=== PATIENT | female | born 1950 | race Caucasian/White ===

== ENCOUNTER → 2017-01-18 | Outpatient (CLI) | payer OTHER ==
--- NOTE | 2017-01-19 07:42 | MAMMOGRAPHY REPORT ---
BILATERAL DIGITAL SCREENING MAMMOGRAM WITH CAD: 01/18/2017 CLINICAL HISTORY: Routine screening. Patient has no complaints. TECHNIQUE: Current study was also evaluated with a Computer Aided Detection (CAD) system. Bilatera l CC and MLO views were obtained. COMPARISON: Comparison is made to exams dated: 01/04/2016 mammogram, 08/04/2013 mammogram - [facility] [place], and 03/25/2008. BREAST COMPOSITION: The tissue of both breasts is almost entirely fatty. FINDINGS: No suspicious masses, calcifications, or areas of architectural distortion are noted in e ither breast. There has been no significant interval change compared to prior exams. Scattered bilat eral benign-appearing calcifications are not significantly changed. IMPRESSION: ACR BI-RADS CATEGORY 2: BENIGN There is no mammographic evidence of malignancy. A 1 year screening mammogram is recommended. The p atient will receive written notification of the results. Approximately 10% of breast cancers are not detected with mammography. A negative mammographic repor t should not delay biopsy if a clinically suggestive mass is present. Tory Simeon M.D. ah/:01/18/2017 14:53:11 Hot Metal Mixer Operator Helper: Angelia Blevins RT(R)(M), [facility] letter sent: Normal 1/2 BI-RADS Code: ACR BI-RADS Category 2: Benign
== END | disposition home or self-care (01) ==
LOC: C.MAMM 09:56
PROVIDERS: ATTEND Internal Medicine
DX: Z12.31 Encounter for screening mammogram for malignant neoplasm of breast (principal)

== ENCOUNTER → 2018-01-24 | Outpatient (CLI) | payer OTHER ==
--- NOTE | 2018-01-25 07:46 | MAMMOGRAPHY REPORT ---
BILATERAL DIGITAL SCREENING MAMMOGRAM TOMOSYNTHESIS WITH CAD: 01/24/2018 CLINICAL HISTORY: Routine screening. Patient has no complaints. TECHNIQUE: Breast tomosynthesis in addition to standard 2D mammography was performed. Current study was also evaluated with a Computer Aided Detection (CAD) system. COMPARISON: Comparison is made to exams dated: 01/18/2017 mammogram, 01/04/2016 mammogram, 08/04/2013 [facility], and 03/25/2008. BREAST COMPOSITION: The tissue of both breasts is almost entirely fatty. FINDINGS: No suspicious masses, calcifications, or areas of architectural distortion are noted in ei ther breast. There has been no significant interval change compared to prior exams. Scattered bilater al benign-appearing calcifications are not significantly changed. IMPRESSION: ACR BI-RADS CATEGORY 2: BENIGN There is no mammographic evidence of malignancy. A 1 year screening mammogram is recommended. The pa tient will receive written notification of the results. Approximately 10% of breast cancers are not detected with mammography. A negative mammographic report should not delay biopsy if a clinically suggestive mass is present. Tory Simeon M.D. /:01/24/2018 12:31:52 Pack Room Operator: Angelia GUZMAN(Ho)(M), [facility] letter sent: Normal 1/2 BI-RADS Code: ACR BI-RADS Category 2: Benign
== END | disposition home or self-care (01) ==
LOC: C.MAMM 10:17
PROVIDERS: ATTEND Internal Medicine
DX: Z12.31 Encounter for screening mammogram for malignant neoplasm of breast (principal)

== ENCOUNTER 2019-07-11 08:02 | Inpatient (IN) ==
--- NOTE | 2019-07-04 08:37 | Anesthesiology Consultation ---
Date of Service July 04, 2019 Assessment & Plan Chart Review Chart Review: Acceptable Risk for Surgery and Patient NOT seen in Pre Admission Testing Consults Requested none ASA ASA2 Proposed Anesthesia Anesthesia Type: General and MAC Spinal Risk / Benefits Reviewed With: PT / POA / Parent / Guardian, Accepts Plan and Informed Consent Obtained History Surgery Operation Date: 07/11/19 13:40 Proposed Procedures p Right Anterior Total Hip Arthroplasty - Von Elizalde, Height/Weight Height: 5 ft 4 in Weight: 72.1 kg Allergies Allergy/AdvReac Type Severity Reaction Status Date / Time No Known Allergies Allergy Unknown Verified 07/01/19 12:07 Medications Home Medications Medication Instructions Recorded Confirmed Last Taken acetaminophen [Acetaminophen Extra 1,000 mg PO Q6H PRN 07/01/19 07/01/19 Unknown Strength] Past Medical History Medical History Cardiac murmur "slight" no problems Osteoarthritis Exercise / Class Metabolic Activity III < 4 Walking/Shop/Light housework Past Family History Family History Father FHx: hypertension Past Surgical History Surgical History History of section x2 History of total hip arthroplasty Left S/P TEA-BSO Past Anesthesia History No Hx of Anesthesia Complications and No Family Hx of Anesthesia Complications History of PONV No Hx of Motion Sickness and History of PONV Social History Smoking Status: Former smoker tobacco type: cigarettes Smoking cigarettes per day: 15 x 40 years Do You Dip or Chew Tobacco: No Smoking End Date: 2016 Hx Alcohol Use: No Hx Substance Use: No substance use type: does not use Physical Exam Vital Signs Last Vital Signs Temp 36.7 C 07/04/19 08:15 Pulse 73 07/04/19 08:15 Resp 18 07/04/19 08:15 BP 165/82 H 07/04/19 08:15 Pulse Ox 97 07/04/19 08:15 Constitutional not obese ENMT Mouth: + dentures Thyromental Distance: > or= 3.5 Finger Breadths Mallampati Class: II Neck normal visual inspection and trachea midline; neck extension not limited Respiratory normal respiratory effort Auscultation: lungs clear to auscultation bilaterally Cardiovascular Rate/Rhythm: regular rate and regular rhythm Heart Sounds: no murmur Vessels: no carotid bruit Musculoskeletal Spine: normal cervical ROM Neurologic moves all extremities Motor/Sensory: no sensory deficit Psychiatric Orientation: alert and oriented x 3 Testing Electrocardiogram Date: 07/04/19 Findings: + NSR @ (at 68;? old anter. ND)
[2019-07-04 11:37] LABS: Basophils # (auto) 0.03 K/uL (0-0.2); Basophils % (auto) 0.5 %; Eosinophils # (auto) 0.06 K/uL (0-0.5); Hematocrit (blood only) 37.9 % (37-47); Hemoglobin 12.8 g/dL (12.0-16.0); Immature Granulocytes # (auto) 0.01 K/uL (0.00-0.02); Immature Granulocytes % (auto) 0.2 %; Lymphocytes # (auto) 1.29 K/uL (1.2-3.4); Lymphocytes % (auto) 21.6 %; Mean Corpuscular Hgb Conc 33.8 g/dL (32-36); Mean Corpuscular Volume 91.8 fL (80-100); Monocytes # (auto) 0.35 K/uL (0.11-0.59); Monocytes % (auto) 5.9 %; Neutrophils # (auto) 4.24 K/uL (1.4-6.5); Neutrophils % (auto) 70.8 %; Platelet Count 421 K/uL (130-400); RDW Coefficient of Variation 13.2 % (11.5-14.5); RDW Standard Deviation 44.4 fL (36.4-46.3); Red Blood Count 4.13 M/uL (4.2-5.4); White Blood Count 5.98 K/uL (4.8-10.8)
[2019-07-04 11:44] LABS: BUN Creatinine Ratio 20.9 (10-20); Calcium 9.3 mg/dl (8.5-10.1); Creatinine Clr Calc Pharmacy 79.4 ml/min; Est GFR (African American) 105.2; Est GFR (Non-African American) 90.8; Potassium 4.5 mmol/L (3.5-5.1)
[2019-07-04 11:50] LABS: INR 0.9 (0.9-1.1); Partial Thromboplastin Time 25.9 Seconds (21.0-31.0); Prothrombin Time 9.7 Seconds (9.0-12.0)
--- NOTE | 2019-07-11 06:18 | History & Physical Report ---
Date of Service July 11, 2019 Assessment & Plan (1) Osteoarthritis of right hip: We will proceed with a right anterior total hip arthroplasty. Postoperatively she will be started on aspirin for DVT prophylaxis and kept overnight in the hospital for postoperative medical management. She plans to use Shippable upon discharge. Present on Admission?: Yes History of Present Illness Chief Complaint: Primary osteoarthritis of the right hip Primary Care Provider: Argelia Reynolds MD Chelo is a pleasant 68-year-old female who is been dealing with chronic increasing right hip and groin pain. She has a history of a left total hip arthroplasty done by Dr. Mclaughlin 20 years ago. X-rays and clinical examination of the right hip are diagnostic for primary osteoarthritis. After failing conservative treatment, she has elected to proceed with a right anterior total hip arthroplasty. Allergies Allergy/AdvReac Type Severity Reaction Status Date / Time No Known Allergies Allergy Unknown Verified 07/01/19 12:07 Home Medications Home Medications Medication Instructions Recorded Confirmed Type acetaminophen [Acetaminophen Extra 1,000 mg PO Q6H PRN 07/01/19 07/01/19 History Strength] Past Med/Surg History Medical History Cardiac murmur "slight" no problems Osteoarthritis Surgical History History of section x2 History of total hip arthroplasty Left S/P TEA-BSO Family History Father FHx: hypertension Social History Preferred Language: Vincentian Communication Ability: Effective B2B Sales Consultant Required: No Beliefs That Will Affect Care: None Current Living Situation: Alone Feels Safe at Home: Yes Smoking Status: Former smoker Tobacco Type: cigarettes ; Cigarettes Per Day: 15 x 40 years ; Second Hand Exposure: No ; Hx Alcohol Use: No Hx Substance Use: No Review of Systems All systems reviewed & are unremarkable except as noted in HPI & below Physical Exam Constitutional: WD/WN, vitals as above Eyes: PERRL, conjunctivae normal, anicteric sclerae ENMT: external ear and nose normal, oropharynx normal Neck: trachea midline, no thyromegaly Respiratory: normal respiratory effort Cardiovascular: RRR, no murmur, no edema Gastrointestinal (Abdomen): normal bowel sounds, soft, nontender, no hepatosplenomegaly Musculoskeletal: Physical examination of the right hip reveals decreased range of motion with flexion, internal and external rotation. There is significant groin pain with forced internal rotation of the hip his leg lengths are essentially equal. Psychiatric: A+Ox3, euthymic affect Results & Data Diagnostic Findings Radiographs of the right hip and pelvis demonstrate advanced osteoarthritis with joint space narrowing osteophyte formation and [id number] articulation.
[~2019-07-11 08:02] MED LIST: ACETAMINOPHEN 500 MG TAB PO SCH; BUPIVACAINE 0.5 % 5 MG/1 ML PF 10ML VIAL ONE; CEFAZOLIN 1000MG 1,000 MG/7.5 ML SYR IV SCH; FAMOTIDINE 20 MG TAB PO SCH; GABAPENTIN 600 MG DOSE PO SCH; LR 15ML/HR IV SCH; LR 60ML/HR IV SCH; ROPIVACAINE 0.5% HCL/PF 150 MG, BUPIVACAINE 0.5% MPF 30 ML, EPINEPHrine 30MG/30ML (OR U... INFIL SCH; TRANEXAMIC ACID 1,000 MG **IV Intra-op IV SCH; TRANEXAMIC ACID 1,000 MG **IV Pre-op IV SCH
[2019-07-11] MEDS ORDERED: MIDAZOLAM HCL 1 MG/ML 2ML VIAL ONE ×2 (08:51→11:47)
[2019-07-11] MEDS ORDERED: ORTHO JOINT ANESTHETIC ONE (09:26)
[2019-07-11] MEDS ORDERED: ONDANSETRON INJ 2 MG/ML 2 ML VIAL IV PRN ×2 (09:41→13:55)
[2019-07-11] MEDS ORDERED: HYDROmorphone INJ 1 MG/ML SYRINGE IV PRN (09:41)
[2019-07-11] MEDS ORDERED: PHENYLEPHRINE 100MCG/ML 5ML SYR IV PRN (09:41)
[2019-07-11] MEDS ORDERED: ATROPINE SULFATE 0.1 MG/ML 10ML SYR IV PRN (09:41)
[2019-07-11] MEDS ORDERED: ePHEDrine sulfate 50 MG/ML AMP IV PRN (09:41)
[2019-07-11] MEDS ORDERED: KETOROLAC 30 MG/ML VIAL IV PRN (09:41)
[2019-07-11] MEDS ORDERED: fentaNYL citrate 100 MCG/2 ML VIAL ONE (10:57)
[2019-07-11] MEDS ORDERED: PROPOFOL IV EMULSION 10 MG/ML 20 ML VIAL IV ONE (11:25)
[2019-07-11] MEDS ORDERED: ePHEDrine sulfate 50 MG/ML SYR ONE (11:25)
--- NOTE | 2019-07-11 12:30 | Fluoroscopy Report ---
FL hip RT 1V HISTORY: 68 years-old Female RIGHT ANTERIOR MAR right hip total joint arthroplasty. History of degen erative joint disease COMPARISON: Pelvis radiograph 06/09/2019 TECHNIQUE: 2 spot fluoroscopic images of the right hip were obtained utilizing 13 seconds fluoroscopy time FINDINGS: Left hip total joint arthroplasty is partially imaged. Severe osteoarthritis of the right hip. Subseq uent images demonstrate a right hip total joint arthroplasty which appears to be in satisfactory posi tioning. No acute fracture identified. Expected postsurgical soft tissue swelling and deep tissue air about the right hip. IMPRESSION: Satisfactory alignment of the right hip total joint arthroplasty. The above report was generated using voice recognition software. It may contain grammatical, syntax o r spelling errors. Electronically signed by: Jose D Rock M.D. 07/11/2019 12:28 PM
--- NOTE | 2019-07-11 12:30 | Operative Report ---
Post Operative Report Pre & Post Diagnosis Operation Date: 07/11/19 10:20 Pre-Op Diagnosis: Right Hip Dengerative Joint Disease Post-Op Diagnosis: Right Hip Dengerative Joint Disease Procedure Operation Date: 07/11/19 10:20 Actual Procedures p Right Anterior Total Hip Arthroplasty(Right) - Von Elizalde DO Surgeon Von Elizalde DO Insurance Claim Representative Von Daley PAC Estimated Blood Loss 250 Findings Consistent with Post-Op Diagnosis Specimens Right femoral head Complications none Disposition Disposition: Recovery Room Indications Chelo is a pleasant 68-year-old female who presented my office with severe right hip and groin pain. X-rays and clinical examination were diagnostic for primary osteoarthritis of the right hip. After failing conservative treatment, she elected to proceed with a right anterior total hip arthroplasty. Description of Procedure Implants used Biomet Taperloc total hip arthroplasty system with a size 16 standard offset Taperloc stem, a 48 mm G7 cup with a 25mm screw, an E1 polyethylene liner, a 32 mm ceramic head with a 0 neck. Patient arrived at the hospital for the above procedure. They were seen in the preoperative holding area and the operative extremity was identified and signed. They were given a spinal anesthetic. They were given a preoperative antibiotic and TXA. They were taken back To the operating room and laid on the table in the supine position. The leg was brought out through a Puristst leg positioner. The hip was then prepped and draped in sterile fashion. A timeout was done and the patient in upper extremities properly identified. An anterior approach was used. Dissection was taken down through the fascia and the tensor muscle belly was retracted laterally and the rectus was retracted medially. The circumflex vessels were identified and ligated. The capsule was then incised and tagged for later repair. The femoral neck was then cut and the femoral head was removed. The acetabulum was exposed. Time was spent doing a complete circumferential labral release. Sequential reaming of the acetabulum up to a size 47 reamer was done. Final reamings were done under fluoroscopy to ensure appropriate version. A Biomet 48 mm G7 cup was then impacted into place. A single 25 mm screw was placed. The E1 polyethylene liner was then snapped into place. Surrounding soft tissues were then injected with 100 cc of an orthopedic pain control cocktail. The proximal femur was then exposed. Sequential broaching up to a size 16 broach was done. Off that broach a size 32 head with a 0 neck was trialed. The hip was reduced and fluoroscopic images showed anatomic alignment of the implants in acceptable length. The broach was removed. The final size 16 standard offset Taperloc stem was then impacted into place. A ceramic 32 mm head with a 0 neck was then impacted into place in the hip was reduced. Final fluoroscopic images showed anatomic reduction of the hip. The capsule was then closed with #1 Vicryl suture. A dilute betadyne lavage was then done for 3 minutes. The joint was then irrigated with normal saline solution. The fascia was closed with #1 PDS suture. Skin was closed with 2-0 Vicryl, jeff, and a Gege VAC dressing. The patient was then transferred to a hospital bed and taken to the post anesthesia care unit in stable condition. They tolerated the procedure well. I attest to the content of the Intraoperative Record and any orders documented therein. Any exceptions are noted below.
--- NOTE | 2019-07-11 13:07 | XRay Report ---
XR hip 1V RT w pelvis CLINICAL HISTORY: Postoperative evaluation. COMPARISON: Pelvis and right hip radiographs June 09, 2019. FINDINGS: Alignment of the total right hip arthroplasty is anatomic. There is no fracture or unexpec quan radiopaque foreign body. There are are skin jeff. Acetabular screw is present. Left hip arthro plasty is noted. IMPRESSION: Expected findings following total right hip arthroplasty. Electronically signed by: Felipe Blank M.D. 07/11/2019 1:06 PM
[2019-07-11] MEDS ORDERED: METOCLOPRAMIDE HCL INJ 5 MG/ML 2 ML VIAL IV PRN (13:55)
[2019-07-11] MEDS ORDERED: ACETAMINOPHEN 500 MG TAB PO PRN (13:55)
[2019-07-11] MEDS ORDERED: SODIUM CHLORIDE 0.9% 1000ML 1,000 ML IV SCH (13:55)
[2019-07-11] MEDS ORDERED: HYDROmorphone INJ 0.5 MG/0.5 ML SYR IV PRN (13:55)
[2019-07-11] MEDS ORDERED: NALOXONE HCL 0.4 MG/1 ML VIAL/CARP IV PRN (13:55)
[2019-07-11] MEDS ORDERED: MAGNESIUM HYDROXIDE SUSP 30 ML UDC PO PRN (13:55)
[2019-07-11] MEDS ORDERED: bisacodyL 10 MG SUPP PR PRN (13:55)
--- NOTE | 2019-07-11 14:03 | Anesthesiology Progress Note ---
Date of Service July 11, 2019 Anesthesia Post Procedure Vital Signs Vital Signs: Temp Pulse Pulse Resp BP Pulse Ox 07/11/19 13:30 36.3 C L 71 13 128/61 100 07/11/19 13:20 79 17 110/62 100 07/11/19 13:10 71 13 128/62 100 07/11/19 13:00 69 14 135/65 100 07/11/19 12:50 36.3 C L 76 19 130/53 L 100 07/11/19 08:21 36.6 C 80 16 156/71 H 96 Transfer of Care Handoff Completed per policy Notes Mental Status: alert / awake / arousable Patient Amnestic to Procedure: Yes Nausea / Vomiting: adequately controlled Pain: adequately controlled Airway Patency, RR, SpO2: stable & adequate BP & HR: stable & adequate Hydration State: stable & adequate Neuraxial Anesthesia: was administered and sensory block is resolving Anesthetic Complications: no major complications apparent
[2019-07-11] MEDS: KETOROLAC TROMETHAMINE 15 MG/ML VIAL IV SCH ×2 (16:52→22:12)
[2019-07-11] MEDS: CEFAZOLIN 1000MG 1,000 MG/7.5 ML SYR IV SCH (18:33)
[2019-07-11] MEDS: DOCUSATE SODIUM 100 MG CAP PO SCH (20:56)
[2019-07-11] MEDS: ASPIRIN 81 MG ECTAB PO SCH (20:57)
[2019-07-11] MEDS: SENNA 8.6 MG TAB PO SCH (20:57)
[2019-07-12] MEDS: OXYCODONE HCL IR 5 MG TAB (IMMEDIATE RELEASE) PO PRN ×2 (00:23→09:51)
[2019-07-12] MEDS: CEFAZOLIN 1000MG 1,000 MG/7.5 ML SYR IV SCH (04:22)
[2019-07-12] MEDS: KETOROLAC TROMETHAMINE 15 MG/ML VIAL IV SCH ×4 (04:22→21:23)
[2019-07-12 06:04] LABS: Basophils # (auto) 0.01 K/uL (0-0.2); Basophils % (auto) 0.1 %; Eosinophils # (auto) 0.02 K/uL (0-0.5); Eosinophils % (auto) 0.3 %; Hematocrit (blood only) 30.4 % (37-47); Hemoglobin 10.4 g/dL (12.0-16.0); Immature Granulocytes # (auto) 0.01 K/uL (0.00-0.02); Immature Granulocytes % (auto) 0.1 %; Lymphocytes # (auto) 1.33 K/uL (1.2-3.4); Lymphocytes % (auto) 18.1 %; Mean Corpuscular Hgb Conc 34.2 g/dL (32-36); Mean Corpuscular Volume 90.7 fL (80-100); Mean Platelet Volume 8.6 fL (7.4-10.4); Monocytes # (auto) 0.59 K/uL (0.11-0.59); Neutrophils # (auto) 5.37 K/uL (1.4-6.5); Neutrophils % (auto) 73.4 %; Platelet Count 303 K/uL (130-400); RDW Coefficient of Variation 13.2 % (11.5-14.5); RDW Standard Deviation 43.8 fL (36.4-46.3); Red Blood Count 3.35 M/uL (4.2-5.4); White Blood Count 7.33 K/uL (4.8-10.8)
[2019-07-12 06:37] LABS: BUN Creatinine Ratio 22.4 (10-20); Calcium 8.2 mg/dl (8.5-10.1); Est GFR (African American) 115.3; Est GFR (Non-African American) 99.4; Potassium 3.8 mmol/L (3.5-5.1)
--- NOTE | 2019-07-12 08:33 | Orthopedic Progress Note ---
Date of Service July 12, 2019 Assessment & Plan (1) Osteoarthritis of right hip: Overall she is doing very well. She not having much pain in the hip. She will be seen by physical therapy today for ambulation and range of motion exercises. She also be seen by case management. She lives by herself and was hoping to be discharged to a rehab facility. We will continue aspirin for DVT prophylaxis. Present on Admission?: Yes Subjective Chelo was seen and examined at bedside this morning. Overall she is doing fairly well. She not having much pain in the right hip. She is sitting up eating breakfast. She has no other complaints. Physical Exam Musculoskeletal: On physical examination of the right hip, the Gege VAC dressing is to suction. Her leg lengths are equal. She is active dorsiflexion and plantarflexion of her right ankle. Results & Data Vital Signs (Past 12 Hours) Vital Signs Temp Pulse Resp BP Pulse Ox 07/12/19 07:37 37.1 C 77 16 132/71 98 07/12/19 02:56 37.3 C 79 14 114/64 99 07/11/19 23:35 36.7 C 75 14 127/67 97 Laboratory Results H & H 07/04/19 07/12/19 Range/Units 08:14 05:09 Hgb 12.8 10.4 L (12.0-16.0) g/dL Hct 37.9 30.4 L (37-47) % Coagulation 07/04/19 Range/Units 08:14 INR 0.9 (0.9-1.1) Diagnostic Findings Postoperative x-rays of the right hip show the prosthesis to be in anatomic alignment without any evidence of fracture, dislocation, or loosening. PG Care Time/CCT Total # of Minutes Spent Total Time Spent with Patient: Total time spent is greater than 50% in coordination of care (as documented) at patient's floor/unit and/or counseling patient:
[2019-07-12] MEDS: DOCUSATE SODIUM 100 MG CAP PO SCH ×2 (09:47→21:23)
[2019-07-12] MEDS: MULTIVITAMIN TAB PO SCH (09:47)
[2019-07-12] MEDS: ASPIRIN 81 MG ECTAB PO SCH ×2 (09:47→21:23)
--- NOTE | 2019-07-12 14:13 | Anesthesiology Progress Note ---
Date of Service July 12, 2019 Anesthesia Post Procedure Vital Signs Vital Signs: Temp Pulse Pulse Resp BP BP Pulse Ox 07/12/19 11:38 36.9 C 80 16 98/59 L 97 07/12/19 07:37 37.1 C 77 16 132/71 98 07/12/19 02:56 37.3 C 79 14 114/64 99 07/11/19 23:35 36.7 C 75 14 127/67 97 07/11/19 19:36 36.4 C L 82 16 120/73 98 07/11/19 16:57 97 07/11/19 16:50 36.2 C L 80 16 146/71 H 96 07/11/19 15:42 36.3 C L 86 16 126/74 96 07/11/19 14:44 73 16 149/79 H 100 07/11/19 14:15 73 17 172/73 H 98 Pain Intensity Right Hip: Pain Intensity: 3 Notes Mental Status: alert / awake / arousable Nausea / Vomiting: adequately controlled Pain: adequately controlled Airway Patency, RR, SpO2: stable & adequate BP & HR: stable & adequate Hydration State: stable & adequate Neuraxial Anesthesia: was administered and sensory block resolved Anesthetic Complications: no major complications apparent and Pt Satisfied with anesthetic care
[2019-07-12] MEDS: SENNA 8.6 MG TAB PO SCH (21:23)
[2019-07-12] MEDS: ZOLPIDEM TARTRATE 10 MG TAB PO PRN (23:24)
[2019-07-13] MEDS: KETOROLAC TROMETHAMINE 15 MG/ML VIAL IV SCH ×2 (04:45→09:57)
--- NOTE | 2019-07-13 06:56 | Orthopedic Progress Note ---
Date of Service July 13, 2019 Assessment & Plan (1) Osteoarthritis of right hip: Overall she is doing very well. She is not having much pain in the right hip. She is been ambulating well with physical therapy. She is on aspirin for DVT prophylaxis. She is awaiting discharge to either [place] or [facility] rehab tomorrow. Present on Admission?: Yes Subjective Chelo was seen and examined at bedside this morning. Overall she is doing very well. She is not having much pain in the right hip. She is happy with her progress to this point. She participated well yesterday with physical therapy. She has no complaints. Physical Exam Musculoskeletal: On physical examination of the right hip, the Gege VAC dressing is to suction. Her leg lengths are equal. She has active dorsiflexion and plantarflexion of her right ankle. Results & Data Vital Signs (Past 12 Hours) Vital Signs Temp Pulse Resp BP Pulse Ox 07/12/19 23:01 37.1 C 82 14 133/66 98 PG Care Time/CCT Total # of Minutes Spent Total Time Spent with Patient: Total time spent is greater than 50% in coordination of care (as documented) at patient's floor/unit and/or counseling patient:
[2019-07-13] MEDS: MULTIVITAMIN TAB PO SCH (08:52)
[2019-07-13] MEDS: ASPIRIN 81 MG ECTAB PO SCH ×2 (08:52→20:02)
[2019-07-13] MEDS: DOCUSATE SODIUM 100 MG CAP PO SCH ×2 (08:52→20:03)
[2019-07-13] MEDS: SENNA 8.6 MG TAB PO SCH (20:02)
[2019-07-13] MEDS: ZOLPIDEM TARTRATE 10 MG TAB PO PRN (22:57)
--- NOTE | 2019-07-14 07:27 | Anesthesiology Progress Note ---
Date of Service July 14, 2019 Anesthesia Post Procedure Vital Signs Vital Signs: Temp Pulse Resp BP Pulse Ox 07/14/19 06:38 37.3 C 76 14 118/69 98 07/13/19 23:10 37.7 C H 88 14 117/65 96 07/13/19 14:58 37.3 C 84 16 102/60 99 Pain Intensity Right Hip: Pain Intensity: 3 Notes Mental Status: alert / awake / arousable and participated in evaluation Nausea / Vomiting: adequately controlled Pain: adequately controlled Airway Patency, RR, SpO2: stable & adequate BP & HR: stable & adequate Hydration State: stable & adequate
[2019-07-14] MEDS: ASPIRIN 81 MG ECTAB PO SCH (07:29)
[2019-07-14] MEDS: MULTIVITAMIN TAB PO SCH (07:29)
[2019-07-14] MEDS: DOCUSATE SODIUM 100 MG CAP PO SCH (07:30)
--- NOTE | 2019-07-14 14:42 | Discharge Summary ---
Date of Service July 14, 2019 Admission HPI Per Admitting Provider Chelo is a pleasant 68-year-old female who is been dealing with chronic increasing right hip and groin pain. She has a history of a left total hip arthroplasty done by Dr. Mclaughlin 20 years ago. X-rays and clinical examination of the right hip are diagnostic for primary osteoarthritis. After failing conservative treatment, she has elected to proceed with a right anterior total hip arthroplasty. Principal Diagnosis Right total hip arthroplasty Discharge Data Allergies Allergy/AdvReac Type Severity Reaction Status Date / Time No Known Allergies Allergy Unknown Verified 07/01/19 12:07 Consultations 07/12/19 08:00 Consult Case Management - Discharge Planning Routine Procedures Performed Operation Date: 07/11/19 10:20 Actual Procedures p Right Anterior Total Hip Arthroplasty(Right) - Von Elizalde DO Ordered Studies 07/11/19 10:20 FL fluoroscopy <1hr Routine FL hip RT 1V Routine Hospital Course (1) Osteoarthritis of right hip: On July 11, 2019 Chelo arrived at [facility] and underwent a right anterior total hip arthroplasty without complication. She had a spinal anesthetic. Postoperatively she was started on aspirin for DVT prophylaxis and discharged to general orthopedic floors. Her hospital course is uneventful. On postop day #1 her H&H was stable and her pain was well controlled. She was able to participate well with physical therapy. On postop day #2 she continued to do well. She ambulated again with physical therapy and her pain was well controlled. She was hoping for discharge to rehab because she lives alone. On postop day #3 her insurance denied her a rehab stay. She was doing too well with physical therapy. She was then discharged home with [facility]. She will follow-up with orthopedics in 2 weeks. Total Time Total Time Spent Total Time Spent (In Minutes): 20 Discharge Plan Discharge Items Patient Disposition: Transfer Group Home Fac Reason For Visit: Right Hip Dengerative Joint Disease Discharge Diagnosis: Right total hip arthroplasty Activity: As commented below Non-emergency contact: Surgeon Call non-emergency contact if: your wound has increased redness and your wound has increased drainage Follow-up/Referrals: Argelia Reynolds MD [Primary Care Provider] - Diet: Regular Addtl Attending Provider Instructions: Activity and Therapy Recommendations: * If you are using [facility] then therapy will be provided at your home until they feel you have accomplished all of your goals. * If you are using [facility] then Physical Therapy will be provided until they feel you are ready to start Outpatient Physical Therapy. * If you are not using home therapy then Outpatient Physical Therapy should start about 3-5 days from your day of surgery. Therapy will last about 6-10 weeks * You were shown a series of exercises in the hospital. Do these exercises three times each day including the exercises you were shown in physical therapy. * Get up and walk several times each day.~ For the first four weeks, try not to stand or walk for more than one hour at a time. If you do stand or walk for more than one hour, you will not hurt anything, but your leg will likely swell.~~ * As you feel comfortable, you may change from the walker or crutches to a cane and~then to independent walking. Medications: * Narcotic You will likely be sent home from the hospital with a prescription for the narcotic pain medication that worked best throughout your stay. * Aspirin Most patients will be required to take Aspirin 81mg twice a day for 6 weeks after surgery. This is obtained [id number] and a prescription is not necessary. * Other medications may be prescribed for specific circumstances. If you have any questions, please call the office at . * Resume previous home medications unless otherwise instructed TEDs/Elastic Stockings: The white elastic stockings help limit swelling and prevent blood clots from forming in your legs. The more you wear them, the more they work. Wear them for six weeks. Dressing Care: You will likely have a purple VAC dressing after surgery. This dressing will keep the incision dry and promote early healing. After about 7 days the batteries will wear out and the VAC will lose suction. Simply remove the dressing at that time and throw everything away, including the small suction machine. Then, you may leave the jeff open to air or cover them with a dry dressing so they do not rub on your pants. The jeff will be removed at your 2 week follow-up appointment. Showering: You may shower immediately with the purple VAC dressing. Let the shower spray hit your opposite side and slowly pat the plastic dry. Do not soak the dressing. After the dressing is removed you may shower normally with the jeff exposed. Let soapy water run over the jeff and pat them dry. Things To Watch For: * Drainage from the incision site that occurs more than one week after your surgery. * Increased redness at the incision site. * Fever above 102 degrees Fahrenheit. * Unusual chest pain or shortness of breath. * Call [facility] at with any of the above problems Follow-Up Visit: Follow-up with Dr. Elizalde 2-3 weeks after your day of surgery. An appointment was probably scheduled when you signed-up for surgery in the office. If you have any questions call Office Instructions: More detailed instructions as well as Frequently Asked Questions were provided in a folder by our office when you signed-up for surgery. Please review these instructions when you get home. If you have any further questions or concerns, please feel free to call the office at [phone] Pending Studies at Discharge: No Stand-Alone Forms: [facility], Opioid Pain Management Skilled Items Patient informed of condition?: Yes DNR: No Discharge Level of Care: Skilled Communicable Disease: No Discharge Prognosis: Improving Lines: None Urinary Catheter: No Medications and DC Order Prescriptions: New oxycodone 5 mg Tablet 5 mg PO Q4H PRN (Reason: pain) Qty: 30 RF: 0 aspirin [Ecotrin Low Strength] 81 mg Tablet,Delayed Release (Dr/Ec) 81 mg PO BID Qty: 84 RF: 0 Continued acetaminophen [Acetaminophen Extra Strength] 500 mg Tablet 1,000 mg PO Q6H PRN (Reason: Pain) RF: 0 Discharge Orders: Discharge Order (Routine); Ordered 07/14/19 Ordered By: Von Mazariegos/Other Patient Handouts: Surgery Prevent DVT After Admission Data Admit Date/Time: 07/11/19 12:33 Attending Provider: Von Elizalde Admit Provider: Von Elizalde Primary Care Provider: Argelia Reynolds Other Providers: [facility] ; Adam Salcedo [facility] [place] Other Interventions: Discharge Summary Assessment (RN) Last Done: 07/14/19 11:49 DC Date/Time DO NOT enter until pt leaves facility: 07/14/19 13:20
== END 2019-07-14 13:20 | disposition home health service (06) | DRG 470 ==
LOC: ASU 08:02 → 3E 12:33